=== PATIENT | female | born 2000 | race Caucasian/White ===

== ENCOUNTER 2022-08-26 18:00 | Emergency (ER) | payer MEDICARE, OTHER ==
[~2022-08-26] VITALS: Ht 162.6 cm; Wt 73.1 kg
[2022-08-26] MEDS ORDERED: ACETAMINOPHEN 1000MG 100ML IV BAG IV ONE (19:55)
[2022-08-26 20:21] LABS: BASO # 0.1 10^3/uL (0.0-0.2); BASO % 0.7 % (0.0-1.0); EOS # 0.1 10^3/uL (0.0-0.5); EOS % 1.5 % (0.0-3.0); HEMATOCRIT 42.5 % (36.0-47.0); HEMOGLOBIN 13.8 g/dl (12.0-15.5); LYMPH # 2.5 10^3/uL (1.5-5.0); LYMPH % 26.3 % (24.0-44.0); MEAN CORPUSCULAR HEMOGLOBIN 28.8 pg (27.0-33.0); MEAN CORPUSCULAR HGB CONC 32.5 g/dl (32.0-36.5); MEAN CORPUSCULAR VOLUME 88.5 fl (80.0-96.0); MONO # 0.6 10^3/uL (0.0-0.8); MONO % 6.5 % (2.0-8.0); NEUTROPHILS # 6.2 10^3/uL (1.5-8.5); NEUTROPHILS % 64.8 % (36.0-66.0); PLATELET COUNT, AUTOMATED 322 10^3/uL (150-450); WHITE BLOOD COUNT 9.6 10^3/uL (4.0-10.0)
[2022-08-26 20:24] LABS: URINE PREG TEST NEGATIVE (NEGATIVE)
[2022-08-26 20:46] LABS: LIPASE 39 U/L (12-53)
[2022-08-26 20:48] LABS: ALBUMIN 4.3 G/DL (3.2-5.2); ALKALINE PHOSPHATASE 64 U/L (46-116); ALT/SGPT 25 U/L (7.0-40); AST/SGOT 22 U/L (<34); BILIRUBIN,DIRECT < 0.1 MG/DL (<0.4); BILIRUBIN,TOTAL 0.3 MG/DL (0.3-1.2); TOTAL PROTEIN 7.6 G/DL (5.7-8.2)
[2022-08-26] MEDS ORDERED: KETOROLAC 30 MG/ML 1ML VIAL IV ONE (21:30)
[2022-08-26 21:48] LABS: GC DNA AMPLIFICATION NEGATIVE (NEGATIVE)
[2022-08-26] MEDS ORDERED: IBUP-1022 PO (23:07)
[2022-08-26 23:11] VITALS: BP 122/78
== END 2022-08-26 23:13 | disposition home or self-care (01) ==
LOC: M ED 18:00
DX: T83.32XA Displacement of intrauterine contraceptive device, initial encounter (principal)
CPT/HCPCS: 76830; 76856; 80047; 80076; 81001; 83690; 84703; 85025; 87210; 87661; 87810; 87850; 93976; 96374; 96375; 99284; J0131; J1885